=== PATIENT | male | born 1950 | race Caucasian/White ===

== ENCOUNTER 2024-07-02 21:22 | Emergency (ER) | payer MEDICARE, MEDICAID, SELFPAY ==
[2024-07-02 21:25] VITALS: PULSE 99; O2SAT 96
--- NOTE | 2024-07-02 21:27 | PC.NURSE ---
Provider at the bedside, placing stark into stoma to keep open.
[2024-07-02 21:28] VITALS: BP 108/71; PULSE 80; RESP 20; TEMP 36.7; O2SAT 96; BMI 24.2
[2024-07-02 21:29] VITALS: BP 133/76; PULSE 95; RESP 18; O2SAT 96
--- NOTE | 2024-07-02 21:38 | PD.EDADULT ---
ED General RME/HPI General Chief complaint: General Adult/Misc Complain Stated complaint: PULLED G TUBE OUT Time Seen by Provider: 07/02/24 21:35 Arrival date/time: 07/02/24 21:22 CC: G-tube pulled out HPI patient presents to the ER via EMS reports stable vital signs the patient is contorted deconditioned with chronic contractures, the center abdomen stoma is clean dry and intact, no surrounding erythema edema or exudate. Related Data Home Medications ?Medication ?Instructions ?Recorded ?Confirmed bisacodyl 10 mg rectal suppository 10 mg WI Q72H PRN Constipation 03/05/24 03/05/24 (Dulcolax (bisacodyl)) docusate sodium 50 mg/5 mL oral 100 mg feeding tube BID 03/05/24 03/05/24 liquid ipratropium 0.5 mg-albuterol 3 mg 3 ml inhalation TID 03/05/24 03/05/24 (2.5 mg base)/3 mL nebulization soln Previous Rx's ?Medication ?Instructions ?Recorded aspirin 81 mg tablet,delayed 81 mg PO QDAY #30 tabs 03/08/24 release atorvastatin 80 mg tablet 40 mg (1/2 x 80 mg) feeding tube 03/08/24 HS 30 days #0 tabs losartan 50 mg tablet 25 mg (1/2 x 50 mg) feeding tube 03/08/24 QDAY 30 days #0 tabs metformin 500 mg tablet 500 mg PO BID #60 tabs 03/08/24 rifaximin 550 mg tablet (Xifaxan) 550 mg NG BID #60 tabs 03/08/24 Allergies Allergy/AdvReac Type Severity Reaction Status Date / Time No Known Allergies Allergy Verified 02/19/24 15:14 Review of Systems Review of Systems ROS Unobtainable: unobtainable due to mental status Past Medical History Past Medical History CARDIAC: Negative Cardiac Disorders or Congestive Heart Failure RESPIRATORY: Negative Chronic Obstructive Pulmonary Disease (COPD) or Asthma GENITOURINARY: Negative Renal Disease ENDOCRINE: Negative Diabetes Mellitus Type 1 or Diabetes Mellitus Type 2 HEMATOLOGIC: Negative Sickle Cell Disease Social History SMOKING STATUS: Unknown if ever smoked ED Exam Narrative Physical exam: [General: Obese not in cot no acute distress Head normocephalic HEENT: Within acceptable limits Neck is supple nontender Chest equal chest rise nontender to palpation Respiratory: Clear to auscultation no wheezes crackles or rubs CV: Rate rhythm is regular no murmurs rubs or clicks Abdomen is distended secondary to body habitus, center upper stoma clean dry and intact no oozing exudate surrounding erythema or edema. Back: No CVA tenderness no spinous process tenderness from cervical spine thoracic and lumbar spine Skin: Intact no petechiae rash induration ulceration or crepitus Extremities: Moving all extremity against resistance cap refill less than 2 seconds neurosensory intact Neuro: Awake alert oriented x3 Glascow coma 15 no focal deficits] Course Course Course Narrative: Patient's case discussed with Dr. Eagle, post insertion x-ray with Gastrografin reviewed. Quality Measures none Orders Category Date Time Status XR abdomen 1V Stat Exams 07/02/24 21:42 Completed Vital Signs Vital signs: Vital Signs Temperature 98.1 F 07/02/24 21:28 Pulse Rate 80 07/02/24 21:28 Respiratory Rate 20 07/02/24 21:28 Blood Pressure 108/71 07/02/24 21:28 Pulse Oximetry (%) 96 07/02/24 21:28 Oxygen Delivery Method Room Air 07/02/24 21:28 Procedures -ED Procedure Comment 16. At Stewart catheter placed in the stoma without complication balloon inflated, free air and gastric contents were retracted. No obstructions. MDM Patient data External records reviewed:: [facility] previous records Clinical information provided by:: none Social determinants that could affect healthcare access:: none Patient has the following chronic illnesses:: Hemiaplasia hemiparesis following a CVA. How is presenting disease/condition affected by chronic disease/condition?: uneffected by Evaluation data The following diagnostics were reviewed and interpreted by me:: radiology exam(s) and other (specify) Lab and/or radiology exams considered but not ordered:: X-ray close G-tube shows a secure in the small intestine. Interpretation Summary: G-tube reinsertion Medications Medications considered but not ordered:: None Medication administrations:: None Consultations Consultation(s) initiated? (list below): No Diagnosis Differential Diagnosis ED Complaint MDM: G-tube replacement G-tube os site infection abdominal abscess Most likely diagnosis given after review of the tests above:: G-tube replacement Admission Indicated Admission indicated?: not indicated Explain why admission is indicated or not indicated:: Stable for outpatient follow-up Admission Request Was there a request for admission?: No Disposition Plan Disposition Plan: Discharge Discharge Attestation Discharge Attestation: The patient and all family members were given an opportunity to ask questions and understood the discharge instructions. Discharge instructions specifically effects, indications for sooner follow up or return to the emergency department, and the expected course of current diagnosis. Patient condition: Stable Medical Decision Making Differential Diagnosis Differential Diagnosis: G-tube replacement G-tube os site infection abdominal abscess Discharge Plan Plan Patient Disposition: HOME (Self Care) Patient condition on transfer: Stable Prescriptions/Referrals Prescriptions/Med Rec: No Action docusate sodium 50 mg/5 mL Liquid 100 mg feeding tube BID Rx Instructions: HOLD FOR LOOSE STOOLS ipratropium-albuterol 0.5 mg-3 mg(2.5 mg base)/3 mL Solution For Nebulization 3 ml INHALATION TID bisacodyl [Dulcolax (bisacodyl)] 10 mg Suppository 10 mg WI Q72H PRN (Reason: Constipation) Xifaxan 550 mg Tablet 550 mg NG BID Qty: 60 0RF aspirin 81 mg Tablet,Delayed Release (Dr/Ec) 81 mg PO QDAY Qty: 30 0RF losartan 50 mg Tablet 25 mg feeding tube QDAY 30 Days Qty: 0 0RF Rx Instructions: HOLD FOR SBP<100 OR DBP <60 atorvastatin 80 mg tablet 40 mg feeding tube HS 30 Days Qty: 0 0RF Patient Comments: take 1 tablet by mouth at bedtime metformin 500 mg tablet 500 mg PO BID Qty: 60 0RF Problem List Clinical Impression: Encounter for feeding tube placement Patient/Caregiver Discharge Instructions Print Language: South African Stand Alone Forms: Angelica Award Info., Patient Portal Info Letter MD Attestation Attestation The patient was seen by the midlevel practitioner. I, the co-signing physician, was present during the entire ER visit. While I did not physically examine the patient, I was available for consultation as needed.
--- NOTE | 2024-07-02 21:42 | XR_ITS ---
Examination: Abdomen AP single view Technique: AP portable supine abdomen, single view Exam date and time: July 02, 2023 2156 hrs. Indications: Unknown position feeding tube Findings: Contrast opacifies feeding tube and small bowel, no abnormal extravasation of contrast material Impression: Contrast opacifies feeding tube and small bowel
--- NOTE | 2024-07-02 22:04 | PC.NURSE ---
XRAY at the bedside.
[2024-07-02 22:15] VITALS: BP 104/48; PULSE 87; RESP 19; O2SAT 95
[2024-07-03] VITALS: BP 115/66; PULSE 79; RESP 20; O2SAT 95
--- NOTE | 2024-07-03 00:05 | PC.NURSE ---
Report called to [facility]. Report given to EMS at the bedside for transport back.
== END 2024-07-03 | disposition home or self-care (01) ==
LOC: SERX 07-03 02:44
PROVIDERS: Emergency Provider Emergency Medicine; PCP Hospitalist
DX: Z43.1 Encounter for attention to gastrostomy (principal)
CPT/HCPCS: 74018; 99283; Q9963

== ENCOUNTER 2024-10-10 22:31 | Emergency (ER) | payer MEDICARE, MEDICAID, SELFPAY ==
[2024-10-10 22:34] VITALS: PULSE 89; RESP 18; BMI 21.7
[2024-10-10 22:35] VITALS: BP 120/76; PULSE 98; RESP 18; TEMP 36.7; O2SAT 99
--- NOTE | 2024-10-10 22:48 | EDNOTE_ITS ---
ED General RME/HPI General Chief complaint: General Adult/Misc Complain Stated complaint: GTUBE REPLACEMENT Time Seen by Provider: 10/10/24 22:33 Arrival date/time: 10/10/24 22:31 RME / HPI RME / HPI narrative: 73-year-old male patient was brought in by EMS for evaluation regarding PEG tube dislodgment. Patient has significant history of CVA, and a chronic PEG tube, has been out for a while according to the EMS. Did not know what time came out. PEG tube issues for feeding. Related Data Home Medications ?Medication ?Instructions ?Recorded ?Confirmed bisacodyl 10 mg rectal suppository 10 mg AR Q72H PRN C onstipation 03/05/24 03/05/24 (Dulcolax (bisacodyl)) docusate sodium 50 mg/5 mL oral 100 mg feeding tube BI D 03/05/24 03/05/24 liquid ipratropium 0.5 mg-albuterol 3 mg 3 ml inhalation TID 03/05/24 03/05/24 (2.5 mg base)/3 mL nebulization soln Previous Rx's ?Medication ?Instructions ?Recorded aspirin 81 mg tablet,delayed 81 mg PO QDAY #30 tabs release atorvastatin 80 mg tablet 40 mg (1/2 x 80 mg) feeding tube 03/08/24 HS 30 days #0 tabs losartan 50 mg tablet 25 mg (1/2 x 50 mg) feeding tube 03/08/24 QDAY 30 days #0 tabs metformin 500 mg tablet 500 mg PO BID #60 tabs 03/08 rifaximin 550 mg tablet (Xifaxan) 550 mg NG BID #60 ta bs 03/08/24 Allergies Allergy/AdvReac Type Severity Reaction Status Date / Time No Known Allergies Allergy Verified 10/10/24 22:34 Review of Systems Review of Systems Narrative Review of Systems: Review of system reviewed and within normal limits except mentioned in HPI ED Exam Narrative Physical exam: VITAL SIGNS: Reviewed. GENERAL APPEARANCE: Alert and does not follows commands, no acute distress, HEAD AND FACE: Non-traumatic. ENT: PERRL, pink conjunctivitis, eyelid no trauma, Mucous membrane moist. NECK: Supple, nontender, no nuchal rigidity. CHEST: No tenderness, no crepitus, no paradoxical movement, no retractions. LUNGS: Clear, well ventilated, symmetric, no rales, no wheezing, no ronchi, no stridor, good breath sounds bilaterally. HEART: Regular rate, regular rhythm, no murmur, no gallops. ABDOMEN: Soft, positive bowel sounds, nondistended, no guarding, nontender, no rebound, no masses, PEG tube site intact no bleeding RECTAL: Deferred. GENITAL: Deferred. NEUROLOGICAL: Gross motor function intact sensory function intact, Appropriate for age. MUSCULOSKELETAL: low back nontender, full range of motion. EXTREMITIES: Contracted, limited range of motion. SKIN: Color pink, dry, no rash, no lacerations, no abrasions, no contusions. LYMPHATICS: Deferred. Course Quality Measures none Orders Category Date Time Status XR abdomen 1V Stat Exams 10/10/24 22:48 Taken Vital Signs Vital signs: Vital Signs Temperature 98.1 F 10/10/24 22:35 Pulse Rate 98 10/10/24 22:35 Respiratory Rate 18 10/10/24 22:35 Blood Pressure 120/76 10/10/24 22:35 Pulse Oximetry (%) 99 10/10/24 22:35 Oxygen Delivery Method Room Air 10/10/24 22:35 MDM Patient data External records reviewed:: None Clinical information provided by:: patient Social determinants that could affect healthcare access:: none Patient has the following chronic illnesses:: CVA hypertension diabetes mellitus How is presenting disease/condition affected by chronic disease/condition?: uneffected by Evaluation data The following diagnostics were reviewed and interpreted by me:: radiology exam(s) Lab and/or radiology exams considered but not ordered:: None Interpretation Summary: See results in MDM Medications Medications considered but not ordered:: None Medication administrations:: None Consultations Consultation(s) initiated? (list below): No Diagnosis Differential Diagnosis ED Complaint MDM: G-tube malfunction, G-tube replacement, G-tube dislodgment Most likely diagnosis given after review of the tests above:: G-tube dislodgment Admission Indicated Admission indicated?: not indicated Explain why admission is indicated or not indicated:: Stable Admission Request Was there a request for admission?: No Disposition Plan Disposition Plan: Discharge Discharge Attestation Discharge Attestation: Patient condition: Stable Medical Decision Making MDM Narrative MDM Narrative: 73 year-old male patient was brought in by EMS for evaluation regarding PEG tube dislodgment. Patient has significant history of CVA, and a chronic PEG tube, has been out for a while according to the EMS. Did not know what time came out. PEG tube issues for feeding. I tried to place Fr 20 G tube at this available in this emergency room with no success because the opening is too small. I used F16 Stewart catheter with no difficulty. Inflated with 10 cc of NS. Patient tolerated the procedure well. X-ray of the abdomen using Gastrografin showed no extravasation of the dye, G-tube/Stewart catheter was in the right placement. Differential Diagnosis Differential Diagnosis: G-tube malfunction, G-tube replacement, G-tube dislodgment Discharge Plan Plan Patient Disposition: HOME (Self Care) Disposition Comment: Stable Prescriptions/Referrals Prescriptions/Med Rec: No Action docusate sodium 50 mg/5 mL Liquid 100 mg feeding tube BID Rx Instructions: HOLD FOR LOOSE STOOLS ipratropium-albuterol 0.5 mg-3 mg(2.5 mg base)/3 mL Solution For Nebulization 3 ml INHALATION TID bisacodyl [Dulcolax (bisacodyl)] 10 mg Suppository 10 mg AR Q72H PRN (Reason: Constipation) Xifaxan 550 mg Tablet 550 mg NG BID Qty: 60 0RF aspirin 81 mg Tablet,Delayed Release (Dr/Ec) 81 mg PO QDAY Qty: 30 0RF losartan 50 mg Tablet 25 mg feeding tube QDAY 30 Days Qty: 0 0RF Rx Instructions: HOLD FOR SBP<100 OR DBP <60 atorvastatin 80 mg tablet 40 mg feeding tube HS 30 Days Qty: 0 0RF Patient Comments: take 1 tablet by mouth at bedtime metformin 500 mg tablet 500 mg PO BID Qty: 60 0RF Problem List Clinical Impression: Dislodged gastrostomy tube Patient/Caregiver Discharge Instructions Discharge Activity: activity as tolerated Education Materials: ED Feeding Tube Replacement Additional Instructions: Thank you for the opportunity for serving you today. You are stable for discharged . You are advised to: Okay to use G-tube Print Language: Georgian Stand Alone Forms: Angelica Award Info., Patient Portal Info Letter PA/GROUP THERAPY COUNSELOR Supervising Physician PA/DIANE Supervising Physician: Dr Sebastian
--- NOTE | 2024-10-10 22:48 | XR_ITS ---
Examination: Abdomen AP single view Technique: AP portable supine abdomen, single view Exam date and time: October 10, 2024 10:50 PM Indications: Unknown position gastrostomy tube. Findings: Opacification of feeding tube distal stomach versus duodenum No abnormal extravasation of contrast material Impression: Feeding tube in distal stomach versus duodenum
[2024-10-10 23:23] VITALS: BP 147/71; PULSE 82; RESP 18; TEMP 36.6; O2SAT 100
[2024-10-11 00:21] VITALS: BP 137/65; PULSE 84; RESP 18; O2SAT 100
== END 2024-10-11 00:23 | disposition home or self-care (01) ==
LOC: SERX 23:36
PROVIDERS: Emergency Provider Emergency Medicine
DX: Z43.1 Encounter for attention to gastrostomy (principal)
CPT/HCPCS: 74018; 99283

== ENCOUNTER 2024-11-21 20:43 | Emergency (ER) | payer MEDICARE, MEDICAID, SELFPAY ==
[2024-11-21 21:03] VITALS: BP 168/102; PULSE 71; RESP 19; O2SAT 99
[2024-11-21 21:05] VITALS: BMI 21.6
[2024-11-21 21:31] VITALS: PULSE 97; RESP 24; BMI 21.6
--- NOTE | 2024-11-21 21:48 | PD.EDSOB ---
ED SOB =RME/HPI General Chief Complaint: Shortness of Breath/Dyspnea Stated Complaint: SHORTNESS OF BREATH Time Seen by Provider: 11/21/24 21:47 Arrival date/time: 11/21/24 20:43 RME / HPI RME / HPI Narrative: This section includes all my notes and documentations, including HPI, PE, and ED course. Erik Sebastian MD HPI: 73 y/o nonverbal male with Hemiplegia and hemiparesis, Dysphagia, Cirrhosis of the liver, Viral hepatitis C, Type II DM, Acute respiratory failure w/ hypoxia, Gastrostomy, Hyperosmolality and Hypernatremia, Metabolic Encephalopathy, and Muscle weakness presents to ED BIBA from [facility] c/o shortness of breath and fever for couple of days. Per EMS, patient is not usually on supplemental O2, but was administered at 6L via nasal cannula. Patient's GCS is 10, which is his normal . Patient was also given albuterol treatment due to wheezing and crackling.No other complaints reported. ROS: All negative except as documented in HPI. Physical Exam: General: Alert. Mild respiratory distress noted. Fever noted. Eyes: Conjunctivae and lids clear. ENT: No nasal congestion. Neck: Supple. Heart: RRR. Lungs: Moderately decreased air movement. Bilateral rhonchi and rails noted. Abdomen: Soft and nontender. Normal bowel sounds. No distension. No rebound or guarding. Skin: Warm and dry. Neuro: Alert. I reviewed all diagnostic test results. My interpretation of the EKG is most her sinus rhythm My interpretation of the chest x-ray is infiltrates. Blood tests and urine tests unremarkable. COVID-negative. Influenza positive. At this point, diagnoses include influenza. Treatment here included Ceftriaxone Sodium, Sodium Chloride, Acetaminophen, Ketorolac Tromethamine, Methylprednisolone Sodium Succinate, Oseltamivir Phosphate. Significant improvement noted. Recommended treatment at the longterm. Not yet done: Based on my best medical judgment, made decision no further evaluation or treatment indicated at this time. Patient understands and agrees to the discharge instructions customized and printed, see below. Discharge instructions from Dr. Sebastian: --Tamiflu to kill the influenza germs. --Prednisone to help decrease inflammation of the lungs. --Tylenol 650 mg alternating with ibuprofen 400 mg every 4 hours today and tomorrow scheduled. Then as needed for fever/pain. --DuoNeb every 4-6 hours today and tomorrow scheduled.? Then as needed for cough or shortness or breath.?? ?Increase oral fluid.? We need extra fluid when we are sick.?? Maintain clear urine. If dark or yellow, increase oral fluid. --Seek immediate medical care with significant worsening or with any concerns. Erik Sebastian MD Related Data Home Medications ?Medication ?Instructions ?Recorded ?Confirmed bisacodyl 10 mg rectal suppository 10 mg MD Q72H PRN Constipation 03/05/24 03/05/24 (Dulcolax (bisacodyl)) docusate sodium 50 mg/5 mL oral 100 mg feeding tube BID 03/05/24 03/05/24 liquid ipratropium 0.5 mg-albuterol 3 mg 3 ml inhalation TID 03/05/24 03/05/24 (2.5 mg base)/3 mL nebulization soln Previous Rx's ?Medication ?Instructions ?Recorded aspirin 81 mg tablet,delayed 81 mg PO QDAY #30 tabs 03/08/24 release atorvastatin 80 mg tablet 40 mg (1/2 x 80 mg) feeding tube 03/08/24 HS 30 days #0 tabs losartan 50 mg tablet 25 mg (1/2 x 50 mg) feeding tube 03/08/24 QDAY 30 days #0 tabs metformin 500 mg tablet 500 mg PO BID #60 tabs 03/08/24 rifaximin 550 mg tablet (Xifaxan) 550 mg NG BID #60 tabs 03/08/24 oseltamivir 6 mg/mL oral 75 mg (12.5 mL) PO BID 5 days #125 11/22/24 suspension (Tamiflu) mL prednisolone 15 mg/5 mL oral 30 mg (10 mL) PO DAILY 5 days #50 11/22/24 solution mL Allergies Allergy/AdvReac Type Severity Reaction Status Date / Time No Known Allergies Allergy Verified 10/10/24 22:34 Review of Systems Review of Systems ROS Unobtainable: unobtainable due to medical condition Narrative Review of Systems: Refer to HPI above. ED Exam Narrative Physical exam: Refer to HPI above. Course Quality Measures none Orders Category Date Time Status Bedside COVID-19 Antigen Test NOW Care 11/21/24 21:48 Completed Bedside Influenza A&B Antigen Test NOW Care 11/21/24 21:48 Completed EKG (ED ONLY) *Do not use* NOW Care 11/21/24 21:49 Completed Miscellaneous Nursing Order NOW Care 11/21/24 21:48 Completed Saline [Insert IV] NOW Care 11/21/24 21:48 Completed Straight [In and Out Catheter] X1 Care 11/21/24 21:48 Completed EKG (ED Only) Stat Exams 11/21/24 21:49 Ordered XR chest 1V portable Stat Exams 11/21/24 21:49 Completed BNP [B-Type Natriuretic Peptide] Stat Lab 11/21/24 22:47 Completed Blood Culture (Lab) Stat Lab 11/21/24 22:40 Received CBC Stat Lab 11/21/24 22:47 Completed CMP [Comprehensive Metabolic Panel] Stat Lab 11/21/24 22:47 Completed CRP [C-Reactive Protein] Stat Lab 11/21/24 22:47 Completed ESR [Sed Rate (ESR)] Stat Lab 11/21/24 22:47 Completed Free T4 (Free Thyroxine) Stat Lab 11/21/24 22:47 Completed Lactate (Lactic Acid) Stat Lab 11/21/24 22:47 Completed Magnesium Stat Lab 11/21/24 22:47 Completed PT [Prothrombin Time with INR] Stat Lab 11/21/24 22:47 Completed PTT [Partial Thromboplastin Time] Stat Lab 11/21/24 22:47 Completed Procalcitonin Stat Lab 11/21/24 22:47 Completed TSH [Thyroid Stimulating Hormone] Stat Lab 11/21/24 22:47 Completed Troponin I Stat Lab 11/21/24 22:47 Completed UA, C/S IF [Urinalysis, C/S if Indicated] Stat Lab 11/21/24 22:35 Completed VBG [Venous Blood Gas] Stat Lab 11/21/24 22:47 Completed Acetaminophen Ivpb [Ofirmev Inj] Med 11/21/24 22:33 Discontinued 1,000 mg in 100 ml IV X1 Ketorolac Inj [Toradol Inj] Med 11/21/24 22:33 Discontinued 7.5 mg IVP X1 ONE MethylPREDNISolone.* [SoluMEDROL Inj] Med 11/21/24 21:50 Discontinued 125 mg IVP X1 ONE Oseltamivir [Tamiflu] Med 11/21/24 23:45 Discontinued 75 mg PO X1 ONE Sodium Chloride 0.9% 1000 ml [Ns] 1,000 ml Med 11/21/24 21:49 Discontinued IV 999 mls/hr cefTRIAXone [Rocephin] 1,000 mg Med 11/21/24 21:49 Discontinued SODIUM CHLORIDE 0.9% (Popper) [Ns 0.9% (P)] 50 ml IV X1 Vital Signs Vital signs: Vital Signs Pulse Rate 71 11/21/24 21:03 Respiratory Rate 19 11/21/24 21:03 Blood Pressure 168/102 H 11/21/24 21:03 Pulse Oximetry (%) 99 11/21/24 21:03 Oxygen Delivery Method Nasal Cannula 11/21/24 21:03 Oxygen Flow Rate 6 11/21/24 21:03 Shortness of Breath / Dyspnea MDM Narrative MDM Narrative:: Scribe Attestation: Purnima Ferguson, am scribing for and in the presence of Dr. Sebastian. Provider Notation: Although this document has been carefully reviewed, there may still be some phonetic and other typographical errors. These errors are purely grammatical due to imperfections in the software program and should not be construed in any way to compromise the substance of the patient's medical care during this visit. Patient data External records reviewed:: EMS form and Long Term records Clinical information provided by:: EMS Social determinants that could affect healthcare access:: none Patient has the following chronic illnesses:: Hemiplegia and hemiparesis, Dysphagia, Cirrhosis of the liver, Viral hepatitis C, Type II DM, Acute respiratory failure w/ hypoxia, Gastrostomy, Hyperosmolality and Hypernatremia, Metabolic Encephalopathy, and Muscle weakness How is presenting disease/condition affected by chronic disease/condition?: exacerbated by Evaluation data The following diagnostics were reviewed and interpreted by me:: lab results, radiology exam(s) and EKG tracing(s) (My interpretation of the EKG is: Sinus rhythm (95 bpm) with PVCs at nonspecific ST-T changes. Erik Sebastian MD) Lab and/or radiology exams considered but not ordered:: None Interpretation Summary: Influenza Medications / Prescriptions Medications or Prescriptions considered but not ordered:: None Medication administrations:: Medication Administration History Discontinued Medications Ceftriaxone Sodium 1,000 mg/ (Sodium Chloride) 50 mls @ 100 mls/hr IV X1 ONE Stop: 11/21/24 22:18 Last Infusion: 11/21/24 23:58 Dose: Infused Documented By: Admin: 11/21/24 23:25 Dose: 100 mls/hr Documented By: FRANKLYN Sodium Chloride (Ns) 1,000 mls @ 999 mls/hr IV .Q1H1M ONE Stop: 11/21/24 22:49 Last Infusion: 11/21/24 23:53 Dose: Infused Documented By: Admin: 11/21/24 22:52 Dose: 999 mls/hr Documented By: FRANKLYN Acetaminophen (Ofirmev Inj) 1,000 mg in 100 mls @ 250 mls/hr IV X1 ONE Stop: 11/21/24 22:56 Last Infusion: 11/21/24 23:21 Dose: Infused Documented By: Admin: 11/21/24 22:57 Dose: 250 mls/hr Documented By: FRANKLYN Ketorolac Tromethamine (Ketorolac Inj 30 Mg/Ml Vial) 7.5 mg IVP X1 ONE Stop: 11/21/24 22:34 Last Admin: 11/21/24 22:56 Dose: 7.5 mg Documented By: FRANKLYN Methylprednisolone Sodium Succinate (Methylprednisolone Sod Succ 62.5 Mg/Ml 2ml Vial) 125 mg IVP X1 ONE Stop: 11/21/24 21:51 Last Admin: 11/21/24 22:52 Dose: 125 mg Documented By: FRANKLYN Oseltamivir Phosphate (Oseltamivir 6 Mg/Ml) 75 mg PO X1 ONE Stop: 11/21/24 23:46 Last Admin: 11/22/24 00:12 Dose: 75 mg Documented By: KENDALL Comments: administered through patients gtube Ceftriaxone Sodium, Sodium Chloride, Acetaminophen, Ketorolac Tromethamine, Methylprednisolone Sodium Succinate, Oseltamivir Phosphate Consultations Consultation(s) initiated? (list below): No Diagnosis Shortness of Breath Differential Diagnosis: acute exacerbation of chronic obstructive airways disease, congestive heart failure, community acquired pneumonia, asthma with exacerbation and other (COVID, influenza, sepsis) Most likely diagnosis given after review of the tests above:: Influenza Admission Indicated Admission indicated?: not indicated Explain why admission is indicated or not indicated:: With significant improvement, there was no indication for admission. Admission Request Was there a request for admission?: No Disposition Plan Disposition Plan: Discharge Discharge Attestation Discharge Attestation: The patient and all family members were given an opportunity to ask questions and understood the discharge instructions. Discharge instructions specifically effects, indications for sooner follow up or return to the emergency department, and the expected course of current diagnosis. Patient condition: Stable Discharge Plan Plan Patient Disposition: Xfer Skilled Nsg Fac (SNF) Prescriptions/Referrals Prescriptions/Med Rec: New oseltamivir [Tamiflu] 6 mg/mL suspension for reconstitution 75 mg PO BID 5 Days Qty: 125 0RF prednisolone 15 mg/5 mL solution 30 mg PO DAILY 5 Days Qty: 50 0RF No Action docusate sodium 50 mg/5 mL Liquid 100 mg feeding tube BID Rx Instructions: HOLD FOR LOOSE STOOLS ipratropium-albuterol 0.5 mg-3 mg(2.5 mg base)/3 mL Solution For Nebulization 3 ml INHALATION TID bisacodyl [Dulcolax (bisacodyl)] 10 mg Suppository 10 mg MD Q72H PRN (Reason: Constipation) Xifaxan 550 mg Tablet 550 mg NG BID Qty: 60 0RF aspirin 81 mg Tablet,Delayed Release (Dr/Ec) 81 mg PO QDAY Qty: 30 0RF losartan 50 mg Tablet 25 mg feeding tube QDAY 30 Days Qty: 0 0RF Rx Instructions: HOLD FOR SBP<100 OR DBP <60 atorvastatin 80 mg tablet 40 mg feeding tube HS 30 Days Qty: 0 0RF Patient Comments: take 1 tablet by mouth at bedtime metformin 500 mg tablet 500 mg PO BID Qty: 60 0RF Referrals: No Primary/Family,Physician [Primary Care Provider] - In 1 week Problem List Clinical Impression: Influenza Patient/Caregiver Discharge Instructions Discharge Activity: activity as tolerated Education Materials: ED Influenza (Adult) Additional Instructions: Discharge instructions from Dr. Sebastian: --Tamiflu to kill the influenza germs. --Prednisone to help decrease inflammation of the lungs. --Tylenol 650 mg alternating with ibuprofen 400 mg every 4 hours today and tomorrow scheduled. Then as needed for fever/pain. --DuoNeb every 4-6 hours today and tomorrow scheduled.? Then as needed for cough or shortness or breath.?? ?Increase oral fluid.? We need extra fluid when we are sick.?? Maintain clear urine. If dark or yellow, increase oral fluid. --Seek immediate medical care with significant worsening or with any concerns. Print Language: Macedonian Stand Alone Forms: [facility] Award Info., Patient Portal Info Letter
--- NOTE | 2024-11-21 21:49 | XR_ITS ---
Examination: AP chest single view Technique one AP portable supine chest single view Exam date and time: November 21, 2024 1112 hrs. Comparison 04/26/2024 Indications: Chest pain shortness of breath today. Findings: Suspicious for early left basilar pneumonia Normal heart size Mild vascular congestion Prominent osteopenia Impression: Suspicious for early left base pneumonia
[2024-11-21 22:30] VITALS: TEMP 38.6
[2024-11-21] MEDS: SODIUM CHLORIDE 0.9% 1000 ML 1,000 ML 999 ML IV (22:52)
[2024-11-21] MEDS: MethylPREDNISolone SOD SUCC 62.5 MG/ML 2ML VIAL 125 MG IVP (22:52)
[2024-11-21 22:53] LABS: Collection Type, Urine Clean Catch; Squamous Epithelial Cell,Urine 0 /hpf (0-5)
[2024-11-21 22:53] LABS: Lactate (Lactic Acid) 3.4 mMol/L (0.4-2.0)
[2024-11-21 22:54] LABS: Base Excess, Venous 0 (-3-3); O2 Saturation, Venous 63 % (96-97); PCO2, Venous 35 mmHg (36-56); PO2, Venous 34 mmHg (15-58); pH, Venous 7.44 (7.33-7.66)
[2024-11-21 22:56] LABS: Basophils % (Auto) 0 % (0-2.5); Eosinophils % (Auto) 0 % (0-10); Hematocrit 33.3 % (41.0-53.0); Immature Granulocytes % (Auto) 0 % (0-0); Immature Granulocytes Auto 0.02 Thou/mm3 (0.00-0.00); Lymphocytes # (Auto) 0.6 Thou/mm3 (1.0-4.8); Lymphocytes % (Auto) 13 % (10-50); Mean Corpuscular Hemoglobin 31.3 pg (25.0-35.0); Mean Corpuscular Volume 95 fL (80-100); Monocytes # (Auto) 0.3 Thou/mm3 (0.0-0.8); Monocytes % (Auto) 7 % (0-12); Neutrophils # (Auto) 3.8 Thou/mm3 (1.8-7.7); Neutrophils % (Auto) 79 % (37-80); Nucleated Red Blood Cell % 0 /100 WBC (0); RDW Standard Deviation 57.5 fL (35.1-43.9); Red Blood Count 3.52 Miln/mm3 (4.50-5.90); White Blood Count 4.8 Thou/mm3 (3.8-10.6)
[2024-11-21] MEDS: KETOROLAC INJ 30 MG/ML VIAL 7.5 MG IVP (22:56)
[2024-11-21] MEDS: ACETAMINOPHEN IVPB 1,000 MG/100 ML VIAL 250 MG IV (22:57)
[2024-11-21 23:02] LABS: Bilirubin,Urine Negative (Negative); Blood,Urine 2+ (Negative); Clarity,Urine Clear (Clear/Hazy); Color,Urine Yellow (Lt Yel-Yel); Culture Indicated,Urine Not Indicated; Glucose, Urine Negative (Negative); Hyaline Casts,Urine < 1 /hpf (0-1); Ketones,Urine Negative (Negative); Leukocyte Esterase,Urine Negative (Negative); Nitrite,Urine Negative (Negative); Protein,Urine 1+ (Neg - Trace); RBC,Urine 20 /hpf (0-3); Specific Gravity,Urine 1.021 (1.001-1.035); WBC,Urine 2 /hpf (0-5)
[2024-11-21 23:03] LABS: Platelet Count 63 Thou/mm3 (140-440)
[2024-11-21 23:07] LABS: Sed Rate (ESR) 73 mm/hr (0-20); Slide Review Platelets confirmed
[2024-11-21 23:08] LABS: Partial Thromboplastin Time 26.5 Seconds (22.0-36.0); Prothrombin Time 11.3 Seconds (9.0-12.2)
[2024-11-21 23:19] LABS: Alanine Aminotransferase 41 U/L (10-49); Albumin, Serum 3.2 gm/dL (3.4-4.8); Albumin/Globulin Ratio 0.7 (1.2-2.2); Alkaline Phosphatase 200 U/L (46-116); Anion Gap 9 (7-16); Aspartate Amino Transferase 54 U/L (0-34); BUN/Creatinine Ratio 25 Ratio (12-20); Bilirubin,Total 0.8 mg/dL (0.3-1.2); Blood Urea Nitrogen 20 mg/dL (9-23); C-Reactive Protein 4.1 mg/dL (0.0-0.9); Calcium 8.4 mg/dL (8.3-10.6); Carbon Dioxide 23.9 mMol/L (20.0-31.0); Chloride 108 mMol/L (98-107); Creatinine (Component) 0.8 mg/dL (0.6-1.3); Estimated Creatinine Clearance 69.6 mL/min (>60); Free T4 (Free Thyroxine) 0.96 ng/dL (0.89-1.76); Globulin 4.5 gm/dL (2.3-3.5); Glucose 140 mg/dL (74-106); Osmolality,Calculated 285 (275-295); Potassium 3.9 mMol/L (3.4-5.1); Procalcitonin 0.15 ng/ml (0.0-0.49); Sodium 141 mMol/L (136-145); Thyroid Stimulating Hormone 2.93 uIU/mL (0.55-4.78); Total Protein 7.7 gm/dL (5.7-8.2); Troponin I < 0.020 ng/mL (0.0-0.045); eGFR > 60 See Note
[2024-11-21] MEDS: cefTRIAXone 1,000 MG in SODIUM CHLORIDE 0.9% (Popper) 50 ML 100 MG IV (23:25)
[2024-11-21 23:26] VITALS: BP 160/68; PULSE 87; RESP 20; O2SAT 98
[2024-11-21 23:31] LABS: B-Type Natriuretic Peptide 104 pg/mL (0-100)
[2024-11-21 23:56] VITALS: TEMP 37.2
[2024-11-22] MEDS: OSELTAMIVIR 6 MG/ML 75 MG PO (00:12)
[2024-11-22 01:18] VITALS: BP 121/62; PULSE 70; RESP 17; TEMP 37.8; O2SAT 94
[2024-11-22 01:50] LABS: Reflex Lactate? Y
--- NOTE | 2024-11-22 02:09 | PC.NURSE ---
REPORT GIVEN TO RN AT [facility], ALL QUESTIONS ANSWERED.
== END 2024-11-22 02:13 | disposition skilled nursing facility (03) ==
PROVIDERS: Emergency Provider Emergency Medicine
DX: J11.1 Influenza due to unidentified influenza virus with other respiratory manifestations (principal)
CPT/HCPCS: 51701; 36415; 36600; 71045; 80053; 81001; 82803; 83605; 83735; 83880; 84145; 84439; 84443; 84484; 85025; 85610; 85652; 85730; 86140; 87040; 87400; 87634; 87811; 93005; 96365; 96367; 99285; J0131; J0696; J1885; J2919; J7030; J7050; A9270

== ENCOUNTER 2024-12-31 02:58 | Emergency (ER) | payer MEDICARE, MEDICAID, SELFPAY ==
--- NOTE | 2024-12-31 03:01 | PD.EDSKIN ---
ED Skin Abcess FB-RME/HPI General Stated complaint: G-TUBE REPLACEMENT Time Seen by Provider: 12/31/24 03:20 Arrival date/time: 12/31/24 02:58 RME / HPI RME / HPI narrative: This section includes all my notes and documentations, including HPI, PE, and ED course. Erik Sebastian MD HPI: 74yo male with a history of hemiplegia and hemiparesis, dysphagia, cirrhosis, hepatitis C, DMII, Acute respiratory failure w/ hypoxia, G-tube BIBA from [facility] presents to the ED for G-tube dislodgement. Per EMS, patient pulled out his G-tube, but they do not know when. Patient is nonverbal at baseline and is unable to provide any history. No other complaints reported. ROS: Unobtainable due to the patient being nonverbal. Physical Exam: General: Alert. Nonverbal. No acute distress when remaining still. Eyes: Conjunctivae and lids clear. ENT: No nasal congestion. Neck: Supple. Heart: RRR. Lungs: No respiratory distress. Good air movement. No rhonchi, wheezing, rales. Abdomen: Soft and nontender. Normal bowel sounds. No distension. No rebound or guarding. Back: No CVA tenderness. Skin: Warm and dry. Neuro: Alert. I reviewed EMS and intermediate notes. At this point, diagnoses include gastrostomy tube dysfunction. Treatment here included successful Stewart catheter insertion. My interpretation of the abdominal x-ray with Gastrografin insertion is good placement. Based on my best medical judgment, made decision no further evaluation or treatment indicated at this time. Discharge Instructions from Dr. Sebastian: 1. We were able to insert a Stewart catheter to be used as a feeding tube. 2. Seek immediate medical care with any concerns. Erik Sebastian MD Related Data Home Medications ?Medication ?Instructions ?Recorded ?Confirmed bisacodyl 10 mg rectal suppository 10 mg CO Q72H PRN Constipation 03/05/24 03/05/24 (Dulcolax (bisacodyl)) docusate sodium 50 mg/5 mL oral 100 mg feeding tube BID 03/05/24 03/05/24 liquid ipratropium 0.5 mg-albuterol 3 mg 3 ml inhalation TID 03/05/24 03/05/24 (2.5 mg base)/3 mL nebulization soln Previous Rx's ?Medication ?Instructions ?Recorded aspirin 81 mg tablet,delayed 81 mg PO QDAY #30 tabs 03/08/24 release atorvastatin 80 mg tablet 40 mg (1/2 x 80 mg) feeding tube 03/08/24 HS 30 days #0 tabs losartan 50 mg tablet 25 mg (1/2 x 50 mg) feeding tube 03/08/24 QDAY 30 days #0 tabs metformin 500 mg tablet 500 mg PO BID #60 tabs 03/08/24 rifaximin 550 mg tablet (Xifaxan) 550 mg NG BID #60 tabs 03/08/24 Allergies Allergy/AdvReac Type Severity Reaction Status Date / Time No Known Allergies Allergy Verified 10/10/24 22:34 Review of Systems Review of Systems ROS Unobtainable: unobtainable due to medical condition ED Exam Narrative Physical exam: As noted in HPI. Course Quality Measures none Orders Category Date Time Status KUB [XR abdomen 1V] Stat Exams 12/31/24 03:23 Taken Procedures -ED Feeding Tube Replacement Type of Tube: gastrostomy Insertion Site Prior to Procedure: clean Tube Used for Reinsertion: Stewart [place]er Tube Size (F): 16 Balloon size (mL): 10 Verification of Placement: auscultation and other (abdominal x-ray) Tube Secured by: tape/dressing Patient Tolerated Procedure: well and no complications Skin / Abscess / Foreign Body MDM Narrative MDM Narrative:: Scribe Attestation: 12/31/24 Ritika Chen am scribing for and in the presence of Dr. Sebastian. 74yo male with a history of hemiplegia and hemiparesis, dysphagia, cirrhosis, hepatitis C, DMII, Acute respiratory failure w/ hypoxia, G-tube BIBA from [facility] presents to the ED for G-tube dislodgement. Per EMS, patient pulled out his G-tube, but they do not know when. Patient is nonverbal at baseline and is unable to provide any history. No other complaints reported. Patient data External records reviewed:: [facility] previous records (Per chart review, patient was seen) Clinical information provided by:: EMS Social determinants that could affect healthcare access:: housing (SNF resident) Patient has the following chronic illnesses:: hemiplegia and hemiparesis, dysphagia, cirrhosis, hepatitis C, DMII, Acute respiratory failure w/ hypoxia, Gastrostomy How is presenting disease/condition affected by chronic disease/condition?: uneffected by Evaluation data The following diagnostics were reviewed and interpreted by me:: radiology exam(s) Lab and/or radiology exams considered but not ordered:: none Interpretation Summary: KUB my interpretation of KUB is good feeding tube placement. Medications / Prescriptions Medications or Prescriptions considered but not ordered:: none Medication administrations:: none Consultations Consultation(s) initiated? (list below): No Diagnosis Skin/Abscess Differential Diagnosis: other (Feeding tube pulled out.) Most likely diagnosis given after review of the tests above:: Gastrostomy tube dysfunction Admission Indicated Admission indicated?: not indicated Explain why admission is indicated or not indicated:: With successful feeding tube insertion, there was no indication for admission. Admission Request Was there a request for admission?: No Disposition Plan Disposition Plan: Discharge Discharge Attestation Discharge Attestation: The patient and all family members were given an opportunity to ask questions and understood the discharge instructions. Discharge instructions specifically effects, indications for sooner follow up or return to the emergency department, and the expected course of current diagnosis. Patient condition: Stable Discharge Plan Plan Patient Disposition: Xfer Skilled Nsg Fac (SNF) Prescriptions/Referrals Prescriptions/Med Rec: No Action docusate sodium 50 mg/5 mL Liquid 100 mg feeding tube BID Rx Instructions: HOLD FOR LOOSE STOOLS ipratropium-albuterol 0.5 mg-3 mg(2.5 mg base)/3 mL Solution For Nebulization 3 ml INHALATION TID bisacodyl [Dulcolax (bisacodyl)] 10 mg Suppository 10 mg CO Q72H PRN (Reason: Constipation) Xifaxan 550 mg Tablet 550 mg NG BID Qty: 60 0RF aspirin 81 mg Tablet,Delayed Release (Dr/Ec) 81 mg PO QDAY Qty: 30 0RF losartan 50 mg Tablet 25 mg feeding tube QDAY 30 Days Qty: 0 0RF Rx Instructions: HOLD FOR SBP<100 OR DBP <60 atorvastatin 80 mg tablet 40 mg feeding tube HS 30 Days Qty: 0 0RF Patient Comments: take 1 tablet by mouth at bedtime metformin 500 mg tablet 500 mg PO BID Qty: 60 0RF Problem List Clinical Impression: Gastrostomy tube dysfunction Patient/Caregiver Discharge Instructions Discharge Activity: activity as tolerated Education Materials: ED Feeding Tube Insertion Additional Instructions: Discharge Instructions from Dr. Sebastian printed for you: 1. We were able to insert a Stewart catheter to be used as a feeding tube. 2. Seek immediate medical care with any concerns. Print Language: Taiwanese Stand Alone Forms: Angelica Award Info., Patient Portal Info Letter
--- NOTE | 2024-12-31 03:23 | XR_ITS ---
Examination: Abdomen AP do views Technique: AP portable supine abdomen, 2 views Exam date and time: December 31, 2024 0327 hours INDICATIONS: Unknown position gastrostomy tube FINDINGS: Contrast opacified gastrostomy tube stomach duodenal bulb and sweep No abnormal extravasation of contrast material noted IMPRESSION: Gastrostomy tube projects in the distal stomach
[2024-12-31 03:48] VITALS: BMI 21.7
[2024-12-31 04:35] VITALS: BP 115/66; PULSE 78; RESP 17; TEMP 36.6; O2SAT 98
== END 2024-12-31 04:42 | disposition skilled nursing facility (03) ==
LOC: SERX 03:57
PROVIDERS: Emergency Provider Emergency Medicine; PCP Hospitalist
DX: K94.23 Gastrostomy malfunction (principal); K74.60 Unspecified cirrhosis of liver; E11.9 Type 2 diabetes mellitus without complications
CPT/HCPCS: 43762; 74018; 99283; Q9963

== ENCOUNTER 2024-12-31 12:40 | Emergency (ER) | payer MEDICARE, MEDICAID, SELFPAY ==
[2024-12-31 12:43] VITALS: BP 103/62; PULSE 65; RESP 18; TEMP 36.3; O2SAT 96
[2024-12-31 13:27] VITALS: PULSE 80; RESP 18; O2SAT 99
--- NOTE | 2024-12-31 13:50 | PD.EDADULT ---
ED General RME/HPI General Chief complaint: General Adult/Misc Complain Stated complaint: PULLED OUT G2 Time Seen by Provider: 12/31/24 13:31 Arrival date/time: 12/31/24 12:40 RME / HPI RME / HPI narrative: DR. DOMINGUEZ MAIN ED EVALUATION: 74 year old male with past medical history of G-tube feeding dependent, bed bound, hypertension, liver cirrhosis secondary to hepatitis C and previous CVA with residual dysphagia presents to the Emergency Department BIBA from [facility] with complaint of pulling out his G tube. Related Data Home Medications ?Medication ?Instructions ?Recorded ?Confirmed bisacodyl 10 mg rectal suppository 10 mg [place] Q72H PRN Constipation 03/05/24 03/05/24 (Dulcolax (bisacodyl)) docusate sodium 50 mg/5 mL oral 100 mg feeding tube BID 03/05/24 03/05/24 liquid ipratropium 0.5 mg-albuterol 3 mg 3 ml inhalation TID 03/05/24 03/05/24 (2.5 mg base)/3 mL nebulization soln Previous Rx's ?Medication ?Instructions ?Recorded aspirin 81 mg tablet,delayed 81 mg PO QDAY #30 tabs 03/08/24 release atorvastatin 80 mg tablet 40 mg (1/2 x 80 mg) feeding tube 03/08/24 HS 30 days #0 tabs losartan 50 mg tablet 25 mg (1/2 x 50 mg) feeding tube 03/08/24 QDAY 30 days #0 tabs metformin 500 mg tablet 500 mg PO BID #60 tabs 03/08/24 rifaximin 550 mg tablet (Xifaxan) 550 mg NG BID #60 tabs 03/08/24 Allergies Allergy/AdvReac Type Severity Reaction Status Date / Time No Known Allergies Allergy Verified 10/10/24 22:34 Review of Systems Review of Systems Systems Reviewed: All systems reviewed, normal except as documented Past Medical History Past Medical History NEUROLOGIC: Positive Cerebrovascular Accident CARDIAC: Positive Hypercholesterolemia and Hypertension GASTROINTESTINAL: Positive Hepatitis ENDOCRINE: Positive Diabetes Mellitus Type 2 Social History SMOKING STATUS: Unknown if ever smoked SUBSTANCE USE: unknown ED Exam Narrative Physical exam: GENERAL APPEARANCE:? at baseline, well-developed, well-nourished, moderate pallor HEENT: normocephalic, atraumatic NECK: supple LUNGS: no respiratory distress, normal effort HEART: good peripheral perfusion ABDOMEN: non distended EXTREMITIES:? atraumatic NEUROLOGIC: at baseline PSYCHIATRIC:? at baseline SKIN: warm, dry, moderate pallor; no rashes Course Quality Measures none Orders Category Date Time Status XR abdomen 1V Stat Exams 12/31/24 14:27 Completed Vital Signs Vital signs: Vital Signs Temperature 97.4 F 12/31/24 12:43 Pulse Rate 65 12/31/24 12:43 Respiratory Rate 18 12/31/24 12:43 Blood Pressure 103/62 12/31/24 12:43 Pulse Oximetry (%) 96 12/31/24 12:43 Oxygen Delivery Method Room Air 12/31/24 12:43 Procedures -ED Procedure Comment Procedure: Stewart Catheter placement Hand hygiene and sterile gloves were performed. A 14 Kyrgyz Stewart catheter was inserted using a sterile technique. Lubricant: Sterile water-soluble lubricant used. Urethra cleaned with antiseptic solution. Catheter inserted gently until urine flow was observed. Balloon inflated with [Volume] mL of sterile saline after confirming proper placement in the bladder. Catheter connected to drainage tubing and bag. Drainage bag positioned below the bladder level. Urine output: Clear, phi-colored urine drained during procedure. Patient tolerates the procedure well. Discharge Plan Plan Patient Disposition: Xfer Skilled Nsg Fac (SNF) Discharge Disposition comment: [facility] Prescriptions/Referrals Prescriptions/Med Rec: No Action docusate sodium 50 mg/5 mL Liquid 100 mg feeding tube BID Rx Instructions: HOLD FOR LOOSE STOOLS ipratropium-albuterol 0.5 mg-3 mg(2.5 mg base)/3 mL Solution For Nebulization 3 ml INHALATION TID bisacodyl [Dulcolax (bisacodyl)] 10 mg Suppository 10 mg KY Q72H PRN (Reason: Constipation) Xifaxan 550 mg Tablet 550 mg NG BID Qty: 60 0RF aspirin 81 mg Tablet,Delayed Release (Dr/Ec) 81 mg PO QDAY Qty: 30 0RF losartan 50 mg Tablet 25 mg feeding tube QDAY 30 Days Qty: 0 0RF Rx Instructions: HOLD FOR SBP<100 OR DBP <60 atorvastatin 80 mg tablet 40 mg feeding tube HS 30 Days Qty: 0 0RF Patient Comments: take 1 tablet by mouth at bedtime metformin 500 mg tablet 500 mg PO BID Qty: 60 0RF Referrals: No Primary/Family,Physician [Primary Care Provider] - In 1 week Problem List Clinical Impression: Dislodged gastrostomy tube Patient/Caregiver Discharge Instructions Print Language: Ecuadorean Stand Alone Forms: Angelica Award Info., Patient Portal Info Letter MDM Narrative MDM hospital course: I, Leida Meredith, am scribing for and in the presence of Dr. Dominguez. Clinical Information Provided by EMS Medical Records [facility], [facility] and custodial Meds/Rx Considered, not Ordered None Labs/Rad/Tests considered, not Ordered None Chronic Illness/Social Conditions which may negatively complicate care or outcome(s)-explain: custodial/debilitated ([facility]) Add or document further as needed: G-tube feeding dependent, bed bound, hypertension, liver cirrhosis secondary to hepatitis C and previous CVA with residual dysphagia EKG EKG not done Lab Interpretation Labs: none Imaging Radiology reports / interpretation(s): Procedure(s): XR abdomen 1V Accession Number(s): [id number] cc: Mervin Tom MD; NO PRIMARY/FAMILY,PHYSICIAN; Belkis Dominguez MD~ Examination: Abdomen AP single view Technique: AP portable supine abdomen, single view Exam date and time: December 31, 2024 1437 hours INDICATIONS: Patient pulled out gastrostomy tube today. FINDINGS: Contrast opacifies the gastrostomy tube in stomach with no extravasation of contrast noted IMPRESSION: Gastrostomy tube in the stomach satisfactory position Dictated By: Mervin Tom MD Medication Administration(s) none Diagnosis Differential diagnosis: G-tube malfunction, G-tube replacement, G-tube dislodgment Most likely dx, and/or detailed dx discussion: Dislodged gastrostomy tube Dispositon Disposition: Nursing/Care
--- NOTE | 2024-12-31 14:27 | XR_ITS ---
Examination: Abdomen AP single view Technique: AP portable supine abdomen, single view Exam date and time: December 31, 2024 1437 hours INDICATIONS: Patient pulled out gastrostomy tube today. FINDINGS: Contrast opacifies the gastrostomy tube in stomach with no extravasation of contrast noted IMPRESSION: Gastrostomy tube in the stomach satisfactory position
[2024-12-31 14:43] VITALS: BP 131/71; PULSE 81; RESP 20; TEMP 36.7; O2SAT 97
[2024-12-31 15:46] VITALS: BP 115/79; PULSE 65; RESP 20; TEMP 37.1; O2SAT 97
--- NOTE | 2024-12-31 18:01 | PC.CC ---
DISPATCH WILL CALL WITH A P/U ETA. TRIP RESERVATION #[id number]. [employer] [phone]. CALL DISPATCH IF AFTER [phone]
[2024-12-31 18:41] VITALS: BP 130/77; PULSE 85; RESP 18; TEMP 36.5; O2SAT 100
== END 2024-12-31 19:15 | disposition skilled nursing facility (03) ==
PROVIDERS: Emergency Provider Emergency Medicine
DX: Z43.1 Encounter for attention to gastrostomy (principal); Z74.01 Bed confinement status; I10 Essential (primary) hypertension; K74.60 Unspecified cirrhosis of liver; B19.20 Unspecified viral hepatitis C without hepatic coma; I69.391 Dysphagia following cerebral infarction
CPT/HCPCS: 51702; 74018; 99283

== ENCOUNTER 2025-01-01 10:06 | Emergency (ER) | payer MEDICARE, MEDICAID, SELFPAY ==
--- NOTE | 2025-01-01 10:15 | PD.EDADULT ---
ED General RME/HPI General Chief complaint: Abdominal Pain Stated complaint: G TUBE REPLACEMENT Time Seen by Provider: 01/01/25 10:12 Arrival date/time: 01/01/25 10:06 RME / HPI RME / HPI narrative: DR. DOMINGUEZ MAIN ED EVALUATION: 74 year old male with past medical history of G-tube feeding dependent, bed bound, hypertension, liver cirrhosis secondary to hepatitis C and previous CVA with residual dysphagia presents to the Emergency Department BIBA from [facility] with complaint of pulling out his G tube. Otherwise the patient is asymptomatic. Related Data Home Medications ?Medication ?Instructions ?Recorded ?Confirmed bisacodyl 10 mg rectal suppository 10 mg AL Q72H PRN Constipation 03/05/24 03/05/24 (Dulcolax (bisacodyl)) docusate sodium 50 mg/5 mL oral 100 mg feeding tube BID 03/05/24 03/05/24 liquid ipratropium 0.5 mg-albuterol 3 mg 3 ml inhalation TID 03/05/24 03/05/24 (2.5 mg base)/3 mL nebulization soln Previous Rx's ?Medication ?Instructions ?Recorded aspirin 81 mg tablet,delayed 81 mg PO QDAY #30 tabs 03/08/24 release atorvastatin 80 mg tablet 40 mg (1/2 x 80 mg) feeding tube 03/08/24 HS 30 days #0 tabs losartan 50 mg tablet 25 mg (1/2 x 50 mg) feeding tube 03/08/24 QDAY 30 days #0 tabs metformin 500 mg tablet 500 mg PO BID #60 tabs 03/08/24 rifaximin 550 mg tablet (Xifaxan) 550 mg NG BID #60 tabs 03/08/24 Allergies Allergy/AdvReac Type Severity Reaction Status Date / Time No Known Allergies Allergy Verified 10/10/24 22:34 Review of Systems Review of Systems Systems Reviewed: All systems reviewed, normal except as documented Past Medical History Past Medical History NEUROLOGIC: Positive Cerebrovascular Accident CARDIAC: Positive Hypercholesterolemia and Hypertension GASTROINTESTINAL: Positive Hepatitis ENDOCRINE: Positive Diabetes Mellitus Type 2 Social History SMOKING STATUS: Unknown if ever smoked SUBSTANCE USE: unknown ED Exam Narrative Physical exam: GENERAL APPEARANCE: at baseline, well-developed, well-nourished, moderate pallor HEENT: normocephalic, atraumatic NECK: supple LUNGS: no respiratory distress, normal effort HEART: good peripheral perfusion ABDOMEN: non distended EXTREMITIES: atraumatic NEUROLOGIC: at baseline PSYCHIATRIC: at baseline SKIN: warm, dry, moderate pallor; no rashes Course Quality Measures none Orders Category Date Time Status XR abdomen 1V Stat Exams 01/01/25 10:56 Completed Vital Signs Vital signs: Vital Signs Temperature 97.0 F 01/01/25 10:24 Pulse Rate 74 01/01/25 10:24 Respiratory Rate 19 01/01/25 10:24 Blood Pressure 122/73 01/01/25 10:24 Pulse Oximetry (%) 95 01/01/25 10:24 Oxygen Delivery Method Room Air 01/01/25 10:24 Discharge Plan Plan Patient Disposition: Xfer Skilled Nsg Fac (SNF) Discharge Disposition comment: [facility] Prescriptions/Referrals Prescriptions/Med Rec: No Action docusate sodium 50 mg/5 mL Liquid 100 mg feeding tube BID Rx Instructions: HOLD FOR LOOSE STOOLS ipratropium-albuterol 0.5 mg-3 mg(2.5 mg base)/3 mL Solution For Nebulization 3 ml INHALATION TID bisacodyl [Dulcolax (bisacodyl)] 10 mg Suppository 10 mg AL Q72H PRN (Reason: Constipation) Xifaxan 550 mg Tablet 550 mg NG BID Qty: 60 0RF aspirin 81 mg Tablet,Delayed Release (Dr/Ec) 81 mg PO QDAY Qty: 30 0RF losartan 50 mg Tablet 25 mg feeding tube QDAY 30 Days Qty: 0 0RF Rx Instructions: HOLD FOR SBP<100 OR DBP <60 atorvastatin 80 mg tablet 40 mg feeding tube HS 30 Days Qty: 0 0RF Patient Comments: take 1 tablet by mouth at bedtime metformin 500 mg tablet 500 mg PO BID Qty: 60 0RF Problem List Clinical Impression: Dislodged gastrostomy tube Patient/Caregiver Discharge Instructions Print Language: Kazakh Stand Alone Forms: Angelica Award Info., Patient Portal Info Letter MDM Narrative [facility] hospital course: ILeida am scribing for and in the presence of Dr. Dominguez. Procedures done or offered: Procedure: Steawrt Catheter placement Hand hygiene and sterile gloves were performed. A 14 Vietnamese Stewart catheter was inserted using a sterile technique. Lubricant: Sterile water-soluble lubricant used. Urethra cleaned with antiseptic solution. Catheter inserted gently until urine flow was observed. Balloon inflated with [Volume] mL of sterile saline after confirming proper placement in the bladder. Catheter connected to drainage tubing and bag. Drainage bag positioned below the bladder level. Urine output: Clear, phi-colored urine drained during procedure. Patient tolerates the procedure well. Clinical Information Provided by EMS Medical Records Reviewed [facility] and EMS Meds/Rx Considered, not Ordered None Labs/Rad/Tests considered, not Ordered None Chronic Illness/Social Conditions Add or document further as needed: G-tube feeding dependent, bed bound, hypertension, liver cirrhosis secondary to hepatitis C and previous CVA with residual dysphagia EKG EKG not done Lab Interpretation Labs: none Imaging Radiology reports / interpretation(s): Procedure(s): XR abdomen 1V Accession Number(s): [id number] cc: Mervin Tom MD; NO PRIMARY/FAMILY,PHYSICIAN; Belkis Dominguez MD~ Examination: Abdomen AP single view Technique: AP portable supine abdomen, single view Exam date and time: January 01, 2025 1118 hours INDICATIONS: Unknown position gastrostomy tube FINDINGS: Opacification of gastrostomy tube duodenal bulb and duodenal sweep No abnormal contrast extravasation IMPRESSION: Feeding tube tip in the second portion of the duodenum Dictated By: Mervin Tom MD Medication Administration(s) none Diagnosis Differential diagnosis: G-tube malfunction, G-tube replacement, G-tube dislodgment Most likely dx, and/or detailed dx discussion: Dislodged gastrostomy tube Dispositon Disposition: Nursing/Care
[2025-01-01 10:24] VITALS: BP 122/73; PULSE 74; RESP 19; TEMP 36.1; O2SAT 95
--- NOTE | 2025-01-01 10:56 | XR_ITS ---
Examination: Abdomen AP single view Technique: AP portable supine abdomen, single view Exam date and time: January 01, 2025 1118 hours INDICATIONS: Unknown position gastrostomy tube FINDINGS: Opacification of gastrostomy tube duodenal bulb and duodenal sweep No abnormal contrast extravasation IMPRESSION: Feeding tube tip in the second portion of the duodenum
[2025-01-01 12:39] VITALS: BP 121/89; PULSE 78; RESP 18; TEMP 36.3; O2SAT 98
--- NOTE | 2025-01-01 14:06 | PC.CC ---
ASW and PICKER / PACKER student were consulted regarding transportation back to [facility] by lisa Covington. PICKER / PACKER, made contact with Elizabeth at [facility] and recieved reservation number [phone].
[2025-01-01 16:13] VITALS: BP 120/67; PULSE 78; RESP 18; TEMP 37.1; O2SAT 95
== END 2025-01-01 16:20 | disposition skilled nursing facility (03) ==
LOC: SERX 10:21
PROVIDERS: Emergency Provider Emergency Medicine
DX: Z43.1 Encounter for attention to gastrostomy (principal)
CPT/HCPCS: 74018; 99283; Q9963

== ENCOUNTER 2025-01-13 20:47 | Emergency (ER) | payer MEDICARE, MEDICAID, SELFPAY ==
--- NOTE | 2025-01-13 21:02 | EDNOTE_ITS ---
ED Recheck Abnl Lab Rx-RME/HPI General Chief Complaint: General Adult/Misc Complain Stated Complaint: G TUBE MALFUNCTION Time Seen by Provider: 01/13/25 20:52 Arrival date/time: 01/13/25 20:47 RME / HPI RME / HPI narrative: Dr. Dominguez?s Main ED Evaluation: 74yo male with a history of CVA with hemiplegia and hemiparesis, dysphagia, cirrhosis, hepatitis C, DMII, Acute respiratory failure w/ hypoxia, G-tube BIBA from [facility] presents to the ED for a G-tube malfunction. Per EMS, [facility] staff sent the patient over for evaluation due to his G-tube not flushing. EMS denies any fever, chills or any other associated symptoms. NKA. Related Data Home Medications ?Medication ?Instructions ?Recorded ?Confirmed bisacodyl 10 mg rectal suppository 10 mg MT Q72H PRN C onstipation 03/05/24 03/05/24 (Dulcolax (bisacodyl)) docusate sodium 50 mg/5 mL oral 100 mg feeding tube BI D 03/05/24 03/05/24 liquid ipratropium 0.5 mg-albuterol 3 mg 3 ml inhalation TID 03/05/24 03/05/24 (2.5 mg base)/3 mL nebulization soln Previous Rx's ?Medication ?Instructions ?Recorded aspirin 81 mg tablet,delayed 81 mg PO QDAY #30 tabs release atorvastatin 80 mg tablet 40 mg (1/2 x 80 mg) feeding tube 03/08/24 HS 30 days #0 tabs losartan 50 mg tablet 25 mg (1/2 x 50 mg) feeding tube 03/08/24 QDAY 30 days #0 tabs metformin 500 mg tablet 500 mg PO BID #60 tabs 03/08 rifaximin 550 mg tablet (Xifaxan) 550 mg NG BID #60 ta bs 03/08/24 Allergies Allergy/AdvReac Type Severity Reaction Status Date / Time No Known Allergies Allergy Verified 10/10/24 22:34 Review of Systems Review of Systems Systems Reviewed: All systems reviewed, normal except as documented Past Medical History Past Medical History NEUROLOGIC: Positive Cerebrovascular Accident CARDIAC: Positive Hypercholesterolemia and Hypertension; Negative Cardiac Disorders or Congestive Heart Failure RESPIRATORY: Negative Chronic Obstructive Pulmonary Disease (COPD) or Asthma GASTROINTESTINAL: Positive Hepatitis GENITOURINARY: Negative Renal Disease ENDOCRINE: Positive Diabetes Mellitus Type 2; Negative Diabetes Mellitus Type 1 HEMATOLOGIC: Negative Sickle Cell Disease Social History SMOKING STATUS: Unknown if ever smoked SUBSTANCE USE: unknown ED Exam Narrative Physical exam: GENERAL APPEARANCE: alert, nonverbal, well-developed, well-nourished, no acute distress VITALS: All vitals were reviewed and the pulse ox is 95% on room air, which is normal according to my interpretation. HEENT: Normocephalic, atraumatic; pupils equal, round, reactive to light; EOMI; mucous membranes pink, moist; oropharynx clear NECK: Supple LUNGS: CTABL; no wheezes, no rales, no rhonchi HEART: Regular rate, regular rhythm; normal S1, S2; no murmurs ABDOMEN: non distended; normal BS; soft, no tenderness, no guarding, no rebound; no masses, no organomegaly, no hernia; G-tube in place without any surrounding erythema BACK: no CVA tenderness EXTREMITIES: atraumatic; no edema NEUROLOGIC: awake; alert; cranial nerves II-XII grossly intact; no focal sensory or motor deficits PSYCHIATRIC: appropriate mood and affect SKIN: warm, dry, normal color; no rashes Course Quality Measures none Vital Signs Vital signs: Vital Signs Pulse Rate 81 01/13/25 21:05 Respiratory Rate 19 01/13/25 21:05 Blood Pressure 132/80 H 01/13/25 21:05 Pulse Oximetry (%) 95 01/13/25 21:05 Oxygen Delivery Method Room Air 01/13/25 21:05 Procedures -ED Feeding Tube Replacement Type of Tube: gastrostomy Insertion Site Prior to Procedure: clean Tube Used for Reinsertion: Stark Cambodian Tube Size (F): 16 Balloon size (mL): 10 Verification of Placement: auscultation Tube Secured by: tape/dressing Patient Tolerated Procedure: well and no complications Recheck / Abnormal Lab / Rx MDM Narrative MDM Narrative:: Scribe Attestation: 01/13/25 - Ritika Ferguson am scribing for and in the presence of Dr. Dominguez. I removed the patient's G-tube and replaced it with a 16 Cambodian stark. See procedure note. It is flushing. Patient is stable to be discharged to the SNF. Patient data External records reviewed:: [facility] previous records (Per chart review, patient was seen here on 01/01/25 for dislodged gastrostomy tube.) Clinical information provided by:: EMS Social determinants that could affect healthcare access:: housing (SNF resident) Patient has the following chronic illnesses:: CVA with hemiplegia and hemiparesis, dysphagia, cirrhosis, hepatitis C, DMII, Acute respiratory failure w/ hypoxia, G-tube How is presenting disease/condition affected by chronic disease/condition?: uneffected by Evaluation data The following diagnostics were reviewed and interpreted by me:: other (specify) (none) Lab and/or radiology exams considered but not ordered:: none Interpretation Summary: none Medications / Prescriptions Medications or Prescriptions considered but not ordered:: none Medication administrations:: none Consultations Consultation(s) initiated? (list below): No Diagnosis Recheck Differential Diagnosis: other (G-tube dislodgement, G-tube obstruction, G-tube malfunction) Most likely diagnosis given after review of the tests above:: see clinical impression below Admission Indicated Admission indicated?: not indicated Admission Request Was there a request for admission?: No Disposition Plan Disposition Plan: Discharge Discharge Attestation Discharge Attestation: The patient and all family members were given an opportunity to ask questions and understood the discharge instructions. Discharge instructions specifically effects, indications for sooner follow up or return to the emergency department, and the expected course of current diagnosis. Patient condition: Stable Discharge Plan Plan Patient Disposition: Xfer Skilled Nsg Fac (SNF) Prescriptions/Referrals Prescriptions/Med Rec: No Action docusate sodium 50 mg/5 mL Liquid 100 mg feeding tube BID Rx Instructions: HOLD FOR LOOSE STOOLS ipratropium-albuterol 0.5 mg-3 mg(2.5 mg base)/3 mL Solution For Nebulization 3 ml INHALATION TID bisacodyl [Dulcolax (bisacodyl)] 10 mg Suppository 10 mg MT Q72H PRN (Reason: Constipation) Xifaxan 550 mg Tablet 550 mg NG BID Qty: 60 0RF aspirin 81 mg Tablet,Delayed Release (Dr/Ec) 81 mg PO QDAY Qty: 30 0RF losartan 50 mg Tablet 25 mg feeding tube QDAY 30 Days Qty: 0 0RF Rx Instructions: HOLD FOR SBP<100 OR DBP <60 atorvastatin 80 mg tablet 40 mg feeding tube HS 30 Days Qty: 0 0RF Patient Comments: take 1 tablet by mouth at bedtime metformin 500 mg tablet 500 mg PO BID Qty: 60 0RF Problem List Clinical Impression: Gastrostomy tube obstruction Patient/Caregiver Discharge Instructions Print Language: Yoruba Stand Alone Forms: Angelica James Info., Patient Portal Info Letter
[2025-01-13 21:05] VITALS: BP 132/80; PULSE 81; RESP 19; O2SAT 95
[2025-01-13 21:44] VITALS: PULSE 94; RESP 18; O2SAT 95
== END 2025-01-13 21:58 | disposition skilled nursing facility (03) ==
PROVIDERS: Emergency Provider Emergency Medicine
DX: K94.23 Gastrostomy malfunction (principal); Y83.3 Surgical operation with formation of external stoma as the cause of abnormal reaction of the patient, or of later complication, without mention of misadventure at the time of the procedure
CPT/HCPCS: 43762; 99283

== ENCOUNTER 2025-01-20 01:13 | Emergency (ER) | payer MEDICARE, MEDICAID, SELFPAY ==
[2025-01-20 01:34] VITALS: BP 171/96; PULSE 79; RESP 19; O2SAT 97
--- NOTE | 2025-01-20 01:37 | EDNOTE_ITS ---
ED Recheck Abnl Lab Rx-RME/HPI General Chief Complaint: General Adult/Misc Complain Stated Complaint: GTUBE ISSUES Time Seen by Provider: 01/20/25 01:35 Arrival date/time: 01/20/25 01:13 RME / HPI RME / HPI narrative: This section includes all my notes and documentations, including HPI, PE, and ED course. Erik Sebastian MD HPI: 74yo male with a history of hemiplegia and hemiparesis, dysphagia, cirrhosis, hepatitis C, DMII, Acute respiratory failure w/ hypoxia, G-tube BIBA from [facility] presents to the ED for G-tube malfunction. Per EMS, patient was sent over due to the patient's G-tube being clogged. No other complaints reported. ROS: Unobtainable due to the patient being nonverbal. Physical Exam: General: Alert. Nonverbal. No acute distress when remaining still. Eyes: Conjunctivae and lids clear. ENT: No nasal congestion. Neck: Supple. Heart: RRR. Lungs: No respiratory distress. Good air movement. No rhonchi, wheezing, rales. Abdomen: Soft and nontender. Normal bowel sounds. No distension. No rebound or guarding. Stark feeding tube noted. Skin: Warm and dry. Neuro: Alert. I reviewed EMS and correction notes. At this point, diagnoses include feeding tube dysfunction. Treatment here included replaced feeding tube with stark catheter. See procedure note. Significant improvement noted. Based on my best medical judgment, made decision no further evaluation or treatment indicated at this time. Discharge Instructions from Dr. Sebastian printed for you: 1. We successfully replaced the malfunctioning feeding tube. 2. Follow the instructions in the attached handout. 3. Seek immediate medical care with any concerns. Erik Sebastian MD Related Data Home Medications ?Medication ?Instructions ?Recorded ?Confirmed bisacodyl 10 mg rectal suppository 10 mg IN Q72H PRN C onstipation 03/05/24 03/05/24 (Dulcolax (bisacodyl)) docusate sodium 50 mg/5 mL oral 100 mg feeding tube BI D 03/05/24 03/05/24 liquid ipratropium 0.5 mg-albuterol 3 mg 3 ml inhalation TID 03/05/24 03/05/24 (2.5 mg base)/3 mL nebulization soln Previous Rx's ?Medication ?Instructions ?Recorded aspirin 81 mg tablet,delayed 81 mg PO QDAY #30 tabs release atorvastatin 80 mg tablet 40 mg (1/2 x 80 mg) feeding tube 03/08/24 HS 30 days #0 tabs losartan 50 mg tablet 25 mg (1/2 x 50 mg) feeding tube 03/08/24 QDAY 30 days #0 tabs metformin 500 mg tablet 500 mg PO BID #60 tabs 03/08 rifaximin 550 mg tablet (Xifaxan) 550 mg NG BID #60 ta bs 03/08/24 Allergies Allergy/AdvReac Type Severity Reaction Status Date / Time No Known Allergies Allergy Verified 10/10/24 22:34 Review of Systems Review of Systems Systems Reviewed: All systems reviewed, normal except as documented ED Exam Narrative Physical exam: As noted in HPI. Course Quality Measures none Vital Signs Vital signs: Vital Signs Pulse Rate 79 01/20/25 01:34 Respiratory Rate 19 01/20/25 01:34 Blood Pressure 171/96 H 01/20/25 01:34 Pulse Oximetry (%) 97 01/20/25 01:34 Oxygen Delivery Method Room Air 01/20/25 01:34 Procedures -ED Feeding Tube Replacement Type of Tube: gastrostomy Insertion Site Prior to Procedure: clean Tube Used for Reinsertion: Stark Maldivian Tube Size (F): 14 Balloon size (mL): 10 Verification of Placement: auscultation Tube Secured by: tape/dressing Patient Tolerated Procedure: well and no complications Recheck / Abnormal Lab / Rx MDM Narrative MDM Narrative:: 74yo male with a history of hemiplegia and hemiparesis, dysphagia, cirrhosis, hepatitis C, DMII, Acute respiratory failure w/ hypoxia, G-tube BIBA from [facility] presents to the ED for G-tube malfunction. Per EMS, patient was sent over due to the patient's G-tube being clogged. No other complaints reported. Patient data External records reviewed:: [facility] previous records (Per chart review, patient was seen here on 01/13/25 for gastrostomy tube obstruction.), EMS form and Correction records Clinical information provided by:: EMS Social determinants that could affect healthcare access:: housing (SNF resident) Patient has the following chronic illnesses:: hemiplegia and hemiparesis, dysphagia, cirrhosis, hepatitis C, DMII, Acute respiratory failure w/ hypoxia, G-tub How is presenting disease/condition affected by chronic disease/condition?: uneffected by Evaluation data The following diagnostics were reviewed and interpreted by me:: other (specify) (none) Lab and/or radiology exams considered but not ordered:: none Interpretation Summary: none Medications / Prescriptions Medications or Prescriptions considered but not ordered:: none Medication administrations:: none Consultations Consultation(s) initiated? (list below): No Diagnosis Recheck Differential Diagnosis: other (Feeding tube malfunction, Feeding tube obstruction, Feeding tube dislodgement) Most likely diagnosis given after review of the tests above:: Feeding tube dysfunction Admission Indicated Admission indicated?: not indicated Explain why admission is indicated or not indicated:: With successful feeding tube replacement, there was no indication for admission. Admission Request Was there a request for admission?: No Disposition Plan Disposition Plan: Discharge Discharge Attestation Discharge Attestation: The patient and all family members were given an opportunity to ask questions and understood the discharge instructions. Discharge instructions specifically effects, indications for sooner follow up or return to the emergency department, and the expected course of current diagnosis. Patient condition: Stable Discharge Plan Plan Patient Disposition: Xfer Skilled Nsg Fac (SNF) Prescriptions/Referrals Prescriptions/Med Rec: No Action docusate sodium 50 mg/5 mL Liquid 100 mg feeding tube BID Rx Instructions: HOLD FOR LOOSE STOOLS ipratropium-albuterol 0.5 mg-3 mg(2.5 mg base)/3 mL Solution For Nebulization 3 ml INHALATION TID bisacodyl [Dulcolax (bisacodyl)] 10 mg Suppository 10 mg IN Q72H PRN (Reason: Constipation) Xifaxan 550 mg Tablet 550 mg NG BID Qty: 60 0RF aspirin 81 mg Tablet,Delayed Release (Dr/Ec) 81 mg PO QDAY Qty: 30 0RF losartan 50 mg Tablet 25 mg feeding tube QDAY 30 Days Qty: 0 0RF Rx Instructions: HOLD FOR SBP<100 OR DBP <60 atorvastatin 80 mg tablet 40 mg feeding tube HS 30 Days Qty: 0 0RF Patient Comments: take 1 tablet by mouth at bedtime metformin 500 mg tablet 500 mg PO BID Qty: 60 0RF Referrals: No Primary/Family,Physician [Primary Care Provider] - In 1 week Problem List Clinical Impression: Feeding tube dysfunction Patient/Caregiver Discharge Instructions Discharge Activity: activity as tolerated Education Materials: ED Tube Replacement Feeding Adalberto Stark Additional Instructions: Discharge Instructions from Dr. Sebastian printed for you: 1. We successfully replaced the malfunctioning feeding tube. 2. Follow the instructions in the attached handout. 3. Seek immediate medical care with any concerns. Print Language: Danish Stand Alone Forms: [facility] Award Info., Patient Portal Info Letter
--- NOTE | 2025-01-20 02:52 | PC.NURSE ---
TRIED TO FLUSED GT BUT UNABLE, DR. SOLORIO AWARE.
--- NOTE | 2025-01-20 02:54 | PC.NURSE ---
REMOVED CLOGGED GT AND REPLACED WITH [place] FR 14 SILICON.
[2025-01-20 03:33] VITALS: RESP 18
== END 2025-01-20 03:34 | disposition skilled nursing facility (03) ==
PROVIDERS: Emergency Provider Emergency Medicine
DX: K94.23 Gastrostomy malfunction (principal); Y83.2 Surgical operation with anastomosis, bypass or graft as the cause of abnormal reaction of the patient, or of later complication, without mention of misadventure at the time of the procedure
CPT/HCPCS: 43762; 99283

== ENCOUNTER 2025-01-26 14:07 | Emergency (ER) | payer MEDICARE, MEDICAID, SELFPAY ==
[2025-01-26 14:17] VITALS: PULSE 76; RESP 97
[2025-01-26 14:34] VITALS: BP 101/60; PULSE 75; RESP 18; TEMP 36.4; O2SAT 94
--- NOTE | 2025-01-26 14:43 | PD.EDABDPN ---
ED Abdominal Pain RME/HPI General Chief Complaint: Abdominal Pain Stated complaint: G TUBE COMPLICATION Time seen by provider: 01/26/25 14:25 Arrival date/time: 01/26/25 14:07 Source: EMS Limitations: other (Nonverbal due to prior CVA) RME / HPI RME / HPI narrative: 74-year-old male who is brought in by EMS from a assisted care facility. He is status post CVA and is nonverbal and nonambulatory. She has a G-tube in place. Nursing staff at the assisted living facility were able to utilize this as they believe it has become clogged. Patient has not received his morning dose of medications. No other acute changes in the patient's status. Related Data Home Medications ?Medication ?Instructions ?Recorded ?Confirmed bisacodyl 10 mg rectal suppository 10 mg NV Q72H PRN Constipation 03/05/24 03/05/24 (Dulcolax (bisacodyl)) docusate sodium 50 mg/5 mL oral 100 mg feeding tube BID 03/05/24 03/05/24 liquid ipratropium 0.5 mg-albuterol 3 mg 3 ml inhalation TID 03/05/24 03/05/24 (2.5 mg base)/3 mL nebulization soln Previous Rx's ?Medication ?Instructions ?Recorded aspirin 81 mg tablet,delayed 81 mg PO QDAY #30 tabs 03/08/24 release atorvastatin 80 mg tablet 40 mg (1/2 x 80 mg) feeding tube 03/08/24 HS 30 days #0 tabs losartan 50 mg tablet 25 mg (1/2 x 50 mg) feeding tube 03/08/24 QDAY 30 days #0 tabs metformin 500 mg tablet 500 mg PO BID #60 tabs 03/08/24 rifaximin 550 mg tablet (Xifaxan) 550 mg NG BID #60 tabs 03/08/24 Allergies Allergy/AdvReac Type Severity Reaction Status Date / Time No Known Allergies Allergy Verified 10/10/24 22:34 Review of Systems Review of Systems Systems Reviewed: All systems reviewed, normal except as documented ED Exam General Limitations: Present other (Nonverbal due to prior CVA) General appearance: Present in no apparent distress Head Head exam: Present atraumatic Eye Eye exam: Present normal appearance, PERRL and EOMI ENT ENT exam: Present normal exam, normal oropharynx and mucous membranes moist Neck Neck exam: Present normal inspection, full ROM and trachea midline Chest Chest inspection: Present normal inspection and symmetric chest wall rise Respiratory Respiratory exam: Present normal lung sounds bilaterally Cardiovascular Cardiovascular exam: Present regular rate, normal rhythm and normal heart sounds Abdominal Exam Abdominal exam: Present soft and normal bowel sounds Extremities Exam Extremities exam: Present normal inspection and full ROM Back Exam Back exam: Present normal inspection and full ROM Neurological Exam Neurological exam: Present alert, oriented X3 and CN II-XII intact Psychiatric Psychiatric exam: Present normal affect and normal mood Skin Skin exam: Present warm, dry, intact and normal color Course Quality Measures none Orders Category Date Time Status KUB [XR abdomen 1V] Stat Exams 01/26/25 15:09 Completed Vital Signs Vital signs: Vital Signs Temperature 97.5 F 01/26/25 14:34 Pulse Rate 75 01/26/25 14:34 Respiratory Rate 18 01/26/25 14:34 Blood Pressure 101/60 01/26/25 14:34 Pulse Oximetry (%) 94 L 01/26/25 14:34 Oxygen Delivery Method Room Air 01/26/25 14:34 Procedures -ED Procedure Comment Patient arrives with a 14 Japanese Stewart catheter in the ventral abdominal region. This was deflated and 10 cc of fluid was released from the balloon. This was extracted without resistance. Unfortunately, we did not have a 14 Japanese G-tube here in the emergency room or in the hospital. This was replaced with a 14 Japanese Stewart catheterAfter it was verified the balloon had no leaks. After insertation the balloon was inflated with 10 cc of normal saline. Plain films of Gastrografin were obtained to verify placement. Patient will be discharged from the emergency room to return to his nursing care facility. Procedure was tolerated well without any immediate complications. Abdominal Pain MDM Patient data External records reviewed:: EMS form Clinical information provided by:: EMS Social determinants that could affect healthcare access:: mental health Patient has the following chronic illnesses:: CVA, HTN How is presenting disease/condition affected by chronic disease/condition?: exacerbated by Evaluation data The following diagnostics were reviewed and interpreted by me:: radiology exam(s) (kub, Plain films of gastrograph verified tube placement) Lab and/or radiology exams considered but not ordered:: n/a Interpretation Summary: kub, Plain films of gastrograph verified tube placement Medications / Prescriptions Medications or Prescriptions considered but not ordered:: n/a Medication administrations:: n/a Consultations Consultation(s) initiated? (list below): No Diagnosis Differential diagnosis abdominal pain: abdominal pain and constipation Most likely diagnosis given after review of the tests above:: G-tube failure Admission Indicated Admission indicated?: not indicated Admission Request Was there a request for admission?: No Disposition Plan Disposition Plan: Discharge Discharge Attestation Discharge Attestation: The patient and all family members were given an opportunity to ask questions and understood the discharge instructions. Discharge instructions specifically effects, indications for sooner follow up or return to the emergency department, and the expected course of current diagnosis. Patient condition: Stable Discharge Plan Plan Patient Disposition: HOME (Self Care) Patient condition on transfer: Stable Prescriptions/Referrals Prescriptions/Med Rec: No Action docusate sodium 50 mg/5 mL Liquid 100 mg feeding tube BID Rx Instructions: HOLD FOR LOOSE STOOLS ipratropium-albuterol 0.5 mg-3 mg(2.5 mg base)/3 mL Solution For Nebulization 3 ml INHALATION TID bisacodyl [Dulcolax (bisacodyl)] 10 mg Suppository 10 mg NV Q72H PRN (Reason: Constipation) Xifaxan 550 mg Tablet 550 mg NG BID Qty: 60 0RF aspirin 81 mg Tablet,Delayed Release (Dr/Ec) 81 mg PO QDAY Qty: 30 0RF losartan 50 mg Tablet 25 mg feeding tube QDAY 30 Days Qty: 0 0RF Rx Instructions: HOLD FOR SBP<100 OR DBP <60 atorvastatin 80 mg tablet 40 mg feeding tube HS 30 Days Qty: 0 0RF Patient Comments: take 1 tablet by mouth at bedtime metformin 500 mg tablet 500 mg PO BID Qty: 60 0RF Problem List Clinical Impression: Gastrostomy tube dysfunction Patient/Caregiver Discharge Instructions Additional Instructions: Return here as needed for any worsening or emergent changes. Print Language: Khmer Stand Alone Forms: Angelica Award Info., Patient Portal Info Letter
--- NOTE | 2025-01-26 15:09 | XR_ITS ---
Examination: Abdomen AP single view Technique: AP portable supine abdomen, single view Exam date and time: January 26, 2025 at 1518 hrs. Indications: Unknown position gastrostomy tube Findings: Opacified feeding tube with contrast in small bowel No abnormal extravasation of contrast material Impression: Opacified feeding tube with contrast in small bowel, tube appears to be in the fourth portion of the duodenum
--- NOTE | 2025-01-26 15:10 | PC.NURSE ---
g-tube removed at this time by karina mckeon. 14 micronesian stark cath placed by provider karina. provider will place x-ray order to check placement
[2025-01-26 16:11] VITALS: BP 111/86; PULSE 66; RESP 18; TEMP 36.7; O2SAT 96
--- NOTE | 2025-01-26 17:13 | PC.CC ---
PRIETO Griffin arranged transportation for pt to be picked up at 1800 to return to [facility].
[2025-01-26 17:47] VITALS: BP 112/70; PULSE 65; RESP 18; TEMP 36.6; O2SAT 97
== END 2025-01-26 17:48 | disposition home or self-care (01) ==
PROVIDERS: Emergency Provider Family Medicine
DX: K94.23 Gastrostomy malfunction (principal)
CPT/HCPCS: 43762; 74018; 99283

== ENCOUNTER 2025-03-24 09:22 | Emergency (ER) | payer MEDICARE, MEDICAID, SELFPAY ==
[2025-03-24 09:40] VITALS: PULSE 78; O2SAT 96
[2025-03-24 09:45] VITALS: BP 107/66; PULSE 75; RESP 18; TEMP 36.5; O2SAT 97
--- NOTE | 2025-03-24 09:45 | PC.NURSE ---
16 sinhala stark cath placed in ostomy for temporary g-tube placement by dr roman.
[2025-03-24 09:47] VITALS: BMI 27.3
--- NOTE | 2025-03-24 09:53 | XR_ITS ---
Examination: Abdomen AP single view Technique: AP portable supine abdomen, single view Exam date and time: March 24, 2025 0956 hours INDICATIONS: Post gastrostomy tube placement FINDINGS: Contrast opacifies the gastrostomy tube in stomach no leakage noted IMPRESSION: Gastrostomy tube satisfactory position
--- NOTE | 2025-03-24 09:56 | PD.EDADULT ---
ED General RME/HPI General Chief complaint: General Adult/Misc Complain Stated complaint: G TUBE REPLACEMENT Time Seen by Provider: 03/24/25 09:27 Arrival date/time: 03/24/25 09:22 RME / HPI RME / HPI narrative: 74 year old male with history of CVA, hypertension, diabetes, hyperlipidemia, s/p PEG tube placement presents to the ED BIBA from [facility] for G-tube replacement. Reports G-tube became dislodged just several hours before arrival. No other associated symptoms reported. Related Data Home Medications ?Medication ?Instructions ?Recorded ?Confirmed bisacodyl 10 mg rectal suppository 10 mg AR Q72H PRN Constipation 03/05/24 03/05/24 (Dulcolax (bisacodyl)) docusate sodium 50 mg/5 mL oral 100 mg feeding tube BID 03/05/24 03/05/24 liquid ipratropium 0.5 mg-albuterol 3 mg 3 ml inhalation TID 03/05/24 03/05/24 (2.5 mg base)/3 mL nebulization soln Previous Rx's ?Medication ?Instructions ?Recorded aspirin 81 mg tablet,delayed 81 mg PO QDAY #30 tabs 03/08/24 release atorvastatin 80 mg tablet 40 mg (1/2 x 80 mg) feeding tube 03/08/24 HS 30 days #0 tabs losartan 50 mg tablet 25 mg (1/2 x 50 mg) feeding tube 03/08/24 QDAY 30 days #0 tabs metformin 500 mg tablet 500 mg PO BID #60 tabs 03/08/24 rifaximin 550 mg tablet (Xifaxan) 550 mg NG BID #60 tabs 03/08/24 Allergies Allergy/AdvReac Type Severity Reaction Status Date / Time No Known Allergies Allergy Verified 03/24/25 10:25 Review of Systems Review of Systems Systems Reviewed: All systems reviewed, normal except as documented Past Medical History Past Medical History NEUROLOGIC: Positive Cerebrovascular Accident CARDIAC: Positive Hypercholesterolemia and Hypertension GASTROINTESTINAL: Positive Hepatitis ENDOCRINE: Positive Diabetes Mellitus Type 2 Social History SMOKING STATUS: Never smoker SUBSTANCE USE: unknown ED Exam Narrative Physical exam: GENERAL APPEARANCE:? alert and oriented x 4, well-developed, well-nourished, no acute distress HEENT: normocephalic, atraumatic NECK: supple LUNGS: no respiratory distress, normal effort HEART: good peripheral perfusion ABDOMEN: non distended, G-tube dislodged, there is some granulation tissue surrounding the OS EXTREMITIES:? atraumatic NEUROLOGIC: awake; alert and oriented x4; cranial nerves II-XII grossly intact PSYCHIATRIC:? appropriate mood and affect SKIN: warm, dry, normal color; no rashes Course Course Course Narrative: On presentation the patients G-tube was dislodged. I attempted to put in a 18F G-tube that was unsuccessful so I placed a 16F Stewart. KUB was performed and shows the G-tube is in satisfactory position. Quality Measures none Orders Category Date Time Status XR abdomen 1V Stat Exams 03/24/25 09:53 Completed Vital Signs Vital signs: Vital Signs Temperature 97.7 F 03/24/25 09:45 Pulse Rate 75 03/24/25 09:45 Respiratory Rate 18 03/24/25 09:45 Blood Pressure 107/66 03/24/25 09:45 Pulse Oximetry (%) 97 03/24/25 09:45 Oxygen Delivery Method Room Air 03/24/25 09:45 Pulse ox is 97% on room air which is adequate. PROCEDURES: Feeding Tube Replacement Type of Tube: other (Stewart catheter) Insertion Site Prior to Procedure: clean Tube Used for Reinsertion: Stewart Mauritanian Tube Size (F): 16 Balloon size (mL): 10 Verification of Placement: KUB and gastrografin injection Tube Secured by: tape/dressing Patient Tolerated Procedure: well and no complications Critical Care Time Critical Care Time Critical Care Time: No Discharge Plan Plan Patient Disposition: Xfer Skilled Nsg Fac (SNF) Prescriptions/Referrals Prescriptions/Med Rec: No Action docusate sodium 50 mg/5 mL Liquid 100 mg feeding tube BID Rx Instructions: HOLD FOR LOOSE STOOLS ipratropium-albuterol 0.5 mg-3 mg(2.5 mg base)/3 mL Solution For Nebulization 3 ml INHALATION TID bisacodyl [Dulcolax (bisacodyl)] 10 mg Suppository 10 mg AR Q72H PRN (Reason: Constipation) Xifaxan 550 mg Tablet 550 mg NG BID Qty: 60 0RF aspirin 81 mg Tablet,Delayed Release (Dr/Ec) 81 mg PO QDAY Qty: 30 0RF losartan 50 mg Tablet 25 mg feeding tube QDAY 30 Days Qty: 0 0RF Rx Instructions: HOLD FOR SBP<100 OR DBP <60 atorvastatin 80 mg tablet 40 mg feeding tube HS 30 Days Qty: 0 0RF Patient Comments: take 1 tablet by mouth at bedtime metformin 500 mg tablet 500 mg PO BID Qty: 60 0RF Referrals: Peewee Hernández MD [Primary Care Provider] - In 1 week Problem List Clinical Impression: Dislodged gastrostomy tube Patient/Caregiver Discharge Instructions Print Language: Ghanaian Stand Alone Forms: [facility] Award Info., Patient Portal Info Letter MDM Narrative MDM hospital course: Dahiana Ferguson am scribing for and in the presence of Dr. Dominguez. Procedures done or offered: G-tube replacement as noted above. Clinical Information Provided by patient and EMS Medical [facility] and [facility] I reviewed ED visit on 01/26/2025 for G-tube malfunction Meds/Rx Considered, not Ordered None Labs/Rad/Tests considered, not Ordered None Chronic Illness/Social Conditions which may negatively complicate care or outcome(s)-explain: [facility]/debilitated EKG EKG not done Lab Interpretation Labs: none Imaging Imaging interpretation: interpreted by mt Provider imaging interpretation(s): The KUB shows Stewart catheter is in satisfactory position. Medication Administration(s) none Diagnosis Most likely dx, and/or detailed dx discussion: Dislodged gastrostomy tube Dispositon Disposition: Discharge Home
--- NOTE | 2025-03-24 10:00 | PC.NURSE ---
x-ray at bedside
--- NOTE | 2025-03-24 11:07 | PC.NURSE ---
REPORT CALLED TO MELLY AT [facility]
--- NOTE | 2025-03-24 12:08 | PC.CC ---
Addendum entered by Madalyn Griffin 03/24/25 12:31: [id number]-P/u ETA [id number] Original Note: [id number]-ASW arranged transportation for pt to return to [facility]. No MALGORZATA needed. ASW contacted [employer] and obtained the trip reservation number rip Reservation #[id number]. [employer] will call [employer] with the approval and [employer] will call ASW with the p/u ETA.
[2025-03-24 13:46] VITALS: BP 110/65; PULSE 71; RESP 15; O2SAT 98
== END 2025-03-24 16:16 | disposition skilled nursing facility (03) ==
PROVIDERS: Emergency Provider Emergency Medicine; PCP Hospitalist
DX: Z43.1 Encounter for attention to gastrostomy (principal); I10 Essential (primary) hypertension; E11.9 Type 2 diabetes mellitus without complications; E78.5 Hyperlipidemia, unspecified
CPT/HCPCS: 74018; 99283; Q9963

== ENCOUNTER 2025-05-06 22:48 | Emergency (ER) | payer MEDICARE, MEDICAID, SELFPAY ==
--- NOTE | 2025-05-06 22:51 | EDNOTE_ITS ---
ED General RME/HPI General Chief complaint: General Adult/Misc Complain Stated complaint: G-TUBE PROBLEM Time Seen by Provider: 05/06/25 23:06 Arrival date/time: 05/06/25 22:48 RME / HPI RME / HPI narrative: Dr. Montes?s Main ED Evaluation: 74yo male with a history of CVA, HTN, DM, HLD, s/p PEG tube placement [facility] from [facility] presents to the ED due to his G-tube being cracked. [facility] staff noticed the patient's G-tube was leaking tonight and saw that the tube was cracked, so they sent him over for evaluation. Patient is nonverbal and is unable to provide any history. NKA. Related Data Home Medications ?Medication ?Instructions ?Recorded ?Confirmed bisacodyl 10 mg rectal suppository 10 mg MN Q72H PRN C onstipation 03/05/24 03/05/24 (Dulcolax (bisacodyl)) docusate sodium 50 mg/5 mL oral 100 mg feeding tube BI D 03/05/24 03/05/24 liquid ipratropium 0.5 mg-albuterol 3 mg 3 ml inhalation TID 03/05/24 03/05/24 (2.5 mg base)/3 mL nebulization soln Previous Rx's ?Medication ?Instructions ?Recorded aspirin 81 mg tablet,delayed 81 mg PO QDAY #30 tabs release atorvastatin 80 mg tablet 40 mg (1/2 x 80 mg) feeding tube 03/08/24 HS 30 days #0 tabs losartan 50 mg tablet 25 mg (1/2 x 50 mg) feeding tube 03/08/24 QDAY 30 days #0 tabs metformin 500 mg tablet 500 mg PO BID #60 tabs 03/08 rifaximin 550 mg tablet (Xifaxan) 550 mg NG BID #60 ta bs 03/08/24 Allergies Allergy/AdvReac Type Severity Reaction Status Date / Time No Known Allergies Allergy Verified 03/24/25 10:25 Review of Systems Review of Systems ROS Unobtainable: other (unobtainable due to the patient being nonverbal) ED Exam Narrative Physical exam: Generally patient is chronically ill-appearing with flexion contractures of bilateral upper extremities., Neurologically the patient is nonverbal and motor exam could not be obtained due to the patient not being cooperative., Heart regular rate and rhythm, lungs clear to auscultation equal bilaterally, abdomen shows 16 Serbian Stewart catheter G-tube to be in place with a crack in the midportion of the tubing. Kendall valve is attached to the end. Course Quality Measures none Discharge Plan Plan Patient Disposition: Xfer Skilled Nsg Fac (SNF) Prescriptions/Referrals Prescriptions/Med Rec: No Action docusate sodium 50 mg/5 mL Liquid 100 mg feeding tube BID Rx Instructions: HOLD FOR LOOSE STOOLS ipratropium-albuterol 0.5 mg-3 mg(2.5 mg base)/3 mL Solution For Nebulization 3 ml INHALATION TID bisacodyl [Dulcolax (bisacodyl)] 10 mg Suppository 10 mg MN Q72H PRN (Reason: Constipation) Xifaxan 550 mg Tablet 550 mg NG BID Qty: 60 0RF aspirin 81 mg Tablet,Delayed Release (Dr/Ec) 81 mg PO QDAY Qty: 30 0RF losartan 50 mg Tablet 25 mg feeding tube QDAY 30 Days Qty: 0 0RF Rx Instructions: HOLD FOR SBP<100 OR DBP <60 atorvastatin 80 mg tablet 40 mg feeding tube HS 30 Days Qty: 0 0RF Patient Comments: take 1 tablet by mouth at bedtime metformin 500 mg tablet 500 mg PO BID Qty: 60 0RF Problem List Clinical Impression: Gastrostomy tube dysfunction Patient/Caregiver Discharge Instructions Additional Instructions: 16 Serbian Stewart catheter being used as the G-tube was replaced here in the emergency room and is okay for use. Print Language: Slovenian Stand Alone Forms: Angelica Award Info., Patient Portal Info Letter MDM Narrative [facility] hospital course (for use when minimal MDM required): Scribe Attestation: 05/06/25 - Ritika Ferguson am scribing for and in the presence of Dr. Montes. Procedure note: The 16 Serbian Stewart catheter being used as the feeding tube was removed after taking down the balloon. It was replaced by a clean fresh new 16 Serbian Stewart catheter with a new Kendall valve at the end. Gastric contents consisting of mucus and green bilious fluid was obtained with suction confirming placement. It was then flushed with water very easily. Clinical Information Provided by: EMS Medical Records reviewed [facility] (Per chart review, patient was seen here on 03/24/25 for dislodged gastrostomy tube.), EMS and [facility] Meds/Rx considered, not ordered None Labs/Rad/Tests considered, not ordered None Chronic Illness/Social Conditions Explain: Hx CVA, hypertension, diabetes, hyperlipidemia, s/p PEG tube placement EKG EKG not done Labs Labs: none Imaging Imaging interpretation: none Medication Administration(s) none Diagnosis Differential Diagnosis ED Complaint MDM: See MDM.
[2025-05-06 22:57] VITALS: PULSE 85; RESP 14; O2SAT 90; BMI 23.0
[2025-05-06 23:08] VITALS: BP 133/86; PULSE 70; RESP 16; TEMP 37.2; O2SAT 95
== END 2025-05-06 23:40 | disposition skilled nursing facility (03) ==
LOC: SERX 23:20
PROVIDERS: Emergency Provider Emergency Medicine; PCP Hospitalist
DX: K94.23 Gastrostomy malfunction (principal); Y83.3 Surgical operation with formation of external stoma as the cause of abnormal reaction of the patient, or of later complication, without mention of misadventure at the time of the procedure
CPT/HCPCS: 99281